=== PATIENT | male | born 1985 | race Caucasian/White ===

== ENCOUNTER 2022-05-03 18:58 | Emergency (ER) | payer OTHER ==
[~2022-05-03] VITALS: Ht 175.3 cm; Wt 85.3 kg
[2022-05-03 19:21] VITALS: BP 118/78
[2022-05-03] MEDS ORDERED: ALUMINUM HYD/MAG/SIMETHICONE 30 ML UDC PO ONE (20:25)
[2022-05-03] MEDS ORDERED: ONDANSETRON 4 MG ODT PO ONE (20:25)
[2022-05-03] MEDS ORDERED: FAMOTIDINE 20 MG TAB PO ONE (20:25)
[2022-05-03 20:56] LABS: BASOPHILS % (AUTO) 0.6 % (0.0-2.0); EOSINOPHILS # (AUTO) 0.2 K/uL (0-0.4); EOSINOPHILS % (AUTO) 3.4 % (0.0-4.0); HEMATOCRIT 47.3 % (36-52); LYMPHOCYTES # (AUTO) 1.8 K/uL (2.0-11.5); LYMPHOCYTES % (AUTO) 25.6 % (20.5-51.1); MEAN CORPUSCULAR HEMOGLOBIN 31 pg (27-31); MEAN CORPUSCULAR HGB CONC 34 g/dL (33-37); MEAN CORPUSCULAR VOLUME 91.5 fL (80-94); MONOCYTES # (AUTO) 0.6 K/uL (0.8-1.0); MONOCYTES % (AUTO) 8.8 % (1.7-9.3); NEUTROPHILS # (AUTO) 4.4 K/uL (1.8-7.7); NEUTROPHILS % (AUTO) 61.6 % (42.2-75.2); PLATELET COUNT (AUTO) 318 K/uL (140-450); RED BLOOD CELL COUNT(AUTO) 5.17 MIL/uL (4.20-6.10); RED CELL DISTRIBUTION WIDTH 12.4 % (11.6-13.7); WHITE BLOOD COUNT (AUTO) 7.1 K/uL (4.8-10.8)
[2022-05-03 21:22] LABS: ALBUMIN 4.1 g/dL (3.4-5.0); ANION GAP 11.9 (8-16); ASPARTATE AMINOTRANSFERASE 20 U/L (15-37); CARBON DIOXIDE 32.2 mmol/L (21-32); CHLORIDE 103 mmol/L (98-107); GFR ARICAN-AMERICAN 109 mL/min (>90); GLUCOSE 106 mg/dL (74-106); LIPASE 62 U/L (73-393); POTASSIUM 4.1 mmol/L (3.5-5.1); SODIUM SERUM 143 mmol/L (136-145); TOTAL BILIRUBIN 0.8 mg/dL (0.0-1.0); UREA NITROGEN, BLOOD 8 mg/dL (7-18)
[2022-05-03] MEDS ORDERED: ONDA-188 SL (21:32)
[2022-05-03] MEDS ORDERED: FAMO-90 PO (21:32)
[2022-05-03] MEDS ORDERED: ALUMINUM HYD/MAG/SIMETHICONE 30 ML UDC ONE (22:17)
[2022-05-03] MEDS ORDERED: FAMOTIDINE 20 MG TAB ONE (22:17)
[2022-05-03] MEDS ORDERED: ONDANSETRON 4 MG ODT ONE (22:18)
--- NOTE | 2022-05-03 22:26 | NUR ---
36/M C/O CHEST PAIN AND VOMITING SINCE LAST NIGHT, DENIES INJURY OR TRAUMA, DENIES TAKING MEDS FOR PAIN. AAOX4, ROOM AIR, AMBULATORY PMH: DENIES NKDA
[2022-05-03 22:33] VITALS: BP 122/75
--- NOTE | 2022-05-03 22:36 | NUR ---
Patient discharged with v/s stable BY ERMD. Written and verbal after care instructions given and explained. Patient alert, oriented and verbalized understanding of instructions. Ambulatory with steady gait. All questions addressed prior to discharge. ID band removed. Patient advised to follow up with PMD. Rx of PEPCID PO, ZOFRAN ODT given. Patient educated on indication of medication including possible reaction and side effects. Opportunity to ask questions provided and answered.
== END 2022-05-03 22:36 | disposition home or self-care (01) ==
LOC: MED 18:58
DX: R07.9 Chest pain, unspecified (principal); R11.2 Nausea with vomiting, unspecified
CPT/HCPCS: 36415; 71045; 80053; 83690; 84484; 85025; 99285; Q0162

== ENCOUNTER 2022-07-11 16:26 | Emergency (ER) | payer OTHER ==
[~2022-07-11] VITALS: Ht 175.3 cm; Wt 84.8 kg
[~2022-07-11 16:26] MED LIST: FAMO-90 PO; ONDA-188 SL
[2022-07-11 16:28] VITALS: BP 143/75
--- NOTE | 2022-07-11 18:00 | NUR ---
ATTEMPTED TO D/C PATIENT, NOT FOUND IN LOBBY/OUTSIDE. PT LEFT WITHOUT D/C PAPERS
== END 2022-07-11 18:00 | disposition home or self-care (01) ==
LOC: MED 16:26
DX: R07.9 Chest pain, unspecified (principal); R20.0 Anesthesia of skin; R20.2 Paresthesia of skin; Z79.899 Other long term (current) drug therapy
CPT/HCPCS: 93005; 99283